=== PATIENT | male | born 1950 | race African-American/Black ===

== ENCOUNTER 2017-04-19 16:27 | Emergency (ER) | payer OTHER ==
[~2017-04-19 16:27] MED LIST: AMOX500T PO
[2017-04-19 16:29] VITALS: BP 158/87; PULSE 92; RESP 20; TEMP 97.5; O2SAT 98
--- NOTE | 2017-04-19 16:38 | PD ---
Physical Exam Time Seen by Provider: 16:38 Narrative 66 y/o male fell off a ladder today. He was stepping down and missed a ladder rung 3-4 ft, here with lower back pain. Vital signs reviewed. Seen at triage desk. Awaiting bed placement. Data Data Last Documented VS Vital Signs Date Time Temp Pulse Resp B/P Pulse Ox O2 Delivery O2 Flow Rate FiO2 04/19/17 16:29 97.5 92 20 158/87 98 Room Air [facility] Medical Record Reviewed: Yes Supervised Visit with ASIA: Ken Ann Apr 19, 2017 16:38
--- NOTE | 2017-04-19 17:42 | PD ---
HPI Chief Complaint: Back/ Neck Pain or Injury Time Seen by Provider: 17:39 Travel History International Travel<30 days: No Contact w/Intl Traveler<30days: No Traveled to known affect area: No History of Present Illness HPI 66-year-old male presents to the emergency department for evaluation after fall. Patient states he fell approximately 3-4 feet, hitting his left side. He adamantly denies hitting his head or any LOC. Patient denies any neck pain or chest pain. No shortness of breath. Patient reports lower back pain and left abdominal pain. He is ambulatory. Patient reports history of diabetes and is on metformin. Patient denies any nausea, vomiting, diarrhea. PFSH Past Medical History Diabetes: Yes Immunizations Current: Yes Social History Alcohol Use: Yes (OCCAS) Tobacco Use: No Substance Use: No Allergies-Medications (Allergen,Severity, Reaction): Coded Allergies: No Known Allergies (Verified , 04/19/17) Reported Meds & Prescriptions Reported Meds & Active Scripts Active Reported Metformin (Metformin HCl) 500 Mg Tab 500 Mg PO DAILY With a meal Review of Systems Except as stated in HPI: all other systems reviewed are Neg Physical Exam Narrative GENERAL: Well-nourished, well-developed male patient, ambulatory. Afebrile. SKIN: Focused skin assessment warm/dry. No lacerations or abrasions. HEAD: Normocephalic. Atraumatic. EYES: No scleral icterus. No injection or drainage. NECK: Supple, trachea midline. No JVD or lymphadenopathy. CARDIOVASCULAR: Regular rate and rhythm without murmurs, gallops, or rubs. RESPIRATORY: Breath sounds equal bilaterally. No accessory muscle use. Lungs sounds are clear to auscultation. GASTROINTESTINAL: Abdomen soft and nondistended. Patient has tenderness to left upper and lower abdomen. MUSCULOSKELETAL: No cyanosis, or edema. BACK: No obvious deformity. No CVA tenderness. Patient has tenderness to palpation over midline lumbar spine. No other midline spinal tenderness. Data Data Last Documented VS Vital Signs Date Time Temp Pulse Resp B/P Pulse Ox O2 Delivery O2 Flow Rate FiO2 04/19/17 19:15 70 18 126/69 97 Room Air 04/19/17 16:29 97.5 Orders Iv Access Insert/Monitor (04/19/17 17:36) Complete Blood Count With Diff (04/19/17 17:36) Comprehensive Metabolic Panel (04/19/17 17:36) Prothrombin Time / Inr (Pt) (04/19/17 17:36) Act Partial Throm Time (Ptt) (04/19/17 17:36) Ct Lumb Spine W/O Contrast (04/19/17 ) Ct Abd/Pel W Iv Contrast(Rout) (04/19/17 ) Sodium Chlor 0.9% 1000 Ml Inj (Ns 1000 M (04/19/17 17:45) Ondansetron Inj (Zofran Inj) (04/19/17 17:45) Morphine Inj (Morphine Inj) (04/19/17 18:00) Iohexol 350 Inj (Omnipaque 350 Inj) (04/19/17 19:38) Labs Laboratory Tests Test 04/19/17 18:00 White Blood Count 5.7 TH/MM3 Red Blood Count 4.50 MIL/MM3 Hemoglobin 13.5 GM/DL Hematocrit 39.4 % Mean Corpuscular Volume 87.4 FL Mean Corpuscular Hemoglobin 30.0 PG Mean Corpuscular Hemoglobin 34.3 % Concent Red Cell Distribution Width 12.9 % Platelet Count 227 TH/MM3 Mean Platelet Volume 8.4 FL Neutrophils (%) (Auto) 54.3 % Lymphocytes (%) (Auto) 36.1 % Monocytes (%) (Auto) 7.6 % Eosinophils (%) (Auto) 1.6 % Basophils (%) (Auto) 0.4 % Neutrophils # (Auto) 3.1 TH/MM3 Lymphocytes # (Auto) 2.1 TH/MM3 Monocytes # (Auto) 0.4 TH/MM3 Eosinophils # (Auto) 0.1 TH/MM3 Basophils # (Auto) 0.0 TH/MM3 CBC Comment DIFF FINAL Differential Comment Prothrombin Time 10.5 SEC Prothromb Time International 1.0 RATIO Ratio Activated Partial 28.6 SEC Thromboplast Time Sodium Level 139 MEQ/L Potassium Level 3.9 MEQ/L Chloride Level 104 MEQ/L Carbon Dioxide Level 26.1 MEQ/L Anion Gap 9 MEQ/L Blood Urea Nitrogen 20 MG/DL Creatinine 1.02 MG/DL Estimat Glomerular Filtration 88 ML/MIN Rate Random Glucose 164 MG/DL Calcium Level 9.0 MG/DL Total Bilirubin 0.2 MG/DL Aspartate Amino Transf 16 U/L (AST/SGOT) Alanine Aminotransferase 24 U/L (ALT/SGPT) Alkaline Phosphatase 133 U/L Total Protein 7.7 GM/DL Albumin 3.7 GM/DL MDM Medical Decision Making Medical Screen Exam Complete: Yes Emergency Medical Condition: Yes Medical Record Reviewed: Yes Interpretation(s) Last Impressions Lumbar Spine CT 04/19/17 0000 Signed Impressions: Service Date/Time: March 19:32 - CONCLUSION: 1. Degenerative changes without fracture or listhesis. Ramy Leija MD Abdomen/Pelvis CT 04/19/17 0000 Signed Impressions: Service Date/Time: , April 19, 2017 19:32 - CONCLUSION: No acute disease. Ramy Leija MD Differential Diagnosis Contusion versus fracture versus acute abdominal injury Narrative Course 66-year-old male presents to the emergency department for evaluation after 3-4 foot fall off a ladder. He reports lower back and left abdominal pain. IV access established. CBC, CMP, PTT, PTT/INR ordered and pending. CT of the lumbar spinous CT abdomen/pelvis with IV contrast is ordered and pending. Patient is given normal saline 1 L IV bolus, morphine 4 mg IV, Zofran 4 mg IV. CBC shows no acute abnormality. CMP shows no acute abnormality. Coags are unremarkable. CT of the lumbar spine shows degenerative changes without fracture or listhesis. CT abdomen/pelvis shows no acute disease. Imaging studies are reassuring. Patient was discharged short-term prescription for Lortab for pain. He is instructed to follow-up with his primary care physician. He verbalizes agreement and understanding. The patient was discharged in stable condition with instructions, including return instructions and follow up instructions. Diagnosis Primary Impression: Low back pain Qualified Code: M54.5 - Acute midline low back pain without sciatica Referrals: Primary Care Physician call for appointment Patient Instructions: Acute Low Back Pain (ED), General Instructions, Narcotic given in the ED Departure Forms: Tests/Procedures, Work Release Enter return to work date: Apr 22, 2017 Additional Instructions: Take Lortab as instructed as needed for pain. Caution this can make you drowsy so do not drive after taking. Ice for 20 minutes 4-5 times daily. Follow-up with your primary care physician. Return to the emergency department for any acute worsening of symptoms. Med/Other Pt SpecificInfo: Prescription(s) given Scripts Hydrocodone-Acetaminophen (Lortab)5-325 Mg Tab1 Tab PO Q6H PRN (PAIN) #12 TAB Ref 0 Prov:Robert Brambila MD 04/19/17 Disposition: 01 DISCHARGE HOME Condition: Stable Jeanine Nevarez Apr 19, 2017 17:42
[2017-04-19] MEDS ORDERED: SODIUM CHLOR 0.9% 1000 ML INJ 1,000 ML IV ONE (17:45)
[2017-04-19] MEDS ORDERED: ONDANSETRON HCL 4 MG/2 ML VIAL IV PUSH ONE (17:45)
[2017-04-19] MEDS ORDERED: METF500T PO (17:50)
[2017-04-19] MEDS ORDERED: MORPHINE SULFATE 4 MG/ML INJ IV PUSH ONE (18:00)
[2017-04-19 19:11] LABS: AUTOMATED NEUTROPHIL # 3.1 TH/MM3 (1.8-7.7); BASOPHIL % 0.4 % (0.0-2.0); EOSINOPHIL # 0.1 TH/MM3 (0-0.4); EOSINOPHIL % 1.6 % (0.0-4.0); HEMATOCRIT 39.4 % (39.0-51.0); HEMO FLAGS DIFF FINAL; LYMPH % 36.1 % (9.0-44.0); LYMPHOCYTE # 2.1 TH/MM3 (1.0-4.8); MEAN CELL VOLUME 87.4 FL (80.0-100.0); MEAN CORPUSCULAR HGB CONC 34.3 % (32.0-36.0); MONO % 7.6 % (0.0-8.0); NEUT % 54.3 % (16.0-70.0); PLATELET COUNT 227 TH/MM3 (150-450); RED CELL DISTRIBUTION WIDTH 12.9 % (11.6-17.2); WHITE BLOOD COUNT 5.7 TH/MM3 (4.0-11.0)
[2017-04-19 19:15] VITALS: BP 126/69; PULSE 70; RESP 18; O2SAT 97
[2017-04-19 19:23] LABS: ANION GAP 9 MEQ/L (5-15); AST (GOT) 16 U/L (15-37); BICARBONATE 26.1 MEQ/L (21.0-32.0); BLOOD UREA NITROGEN 20 MG/DL (7-18); CHLORIDE 104 MEQ/L (98-107); GLOMERULAR FILTRATION RATE 88 ML/MIN (>89); POTASSIUM 3.9 MEQ/L (3.5-5.1); SODIUM (NA) 139 MEQ/L (136-145)
[2017-04-19 19:26] LABS: ALKALINE PHOSPHATASE 133 U/L (45-117); ALT (GPT) 24 U/L (12-78); TOTAL BILIRUBIN ADULT 0.2 MG/DL (0.2-1.0)
[2017-04-19] MEDS ORDERED: IOHEXOL 350 MG/ML 10 ML VIAL (for RAD DIAG) IV ONE (19:38)
[2017-04-19 19:41] LABS: APTT (PATIENT) 28.6 SEC (24.3-30.1); PROTHROMBIN TIME - PATIENT 10.5 SEC (9.8-11.6)
--- NOTE | 2017-04-19 19:53 | RADRPT ---
EXAM DATE/TIME: 04/19/2017 19:32 [facility] COMPARISON: No previous studies available for comparison. INDICATIONS : Fall from ladder today, lower back pain. IV CONTRAST: 96 cc Omnipaque 350 (iohexol) IV ORAL CONTRAST: No oral contrast ingested. RADIATION DOSE: 11.49 CTDIvol (mGy) ; Patient body habitus MEDICAL HISTORY : diabetes SURGICAL HISTORY : None. ENCOUNTER: Initial ACUITY: 1 day PAIN SCALE: 7/10 LOCATION: Bilateral lower back TECHNIQUE: Volumetric scanning of the abdomen and pelvis was performed. Using automated exposure control and ad justment of the mA and/or kV according to patient size, radiation dose was kept as low as reasonably achievable to obtain optimal diagnostic quality images. DICOM format image data is available electro nically for review and comparison. FINDINGS: There are degenerative changes of the spine noted greatest at the lumbosacral junction. No obvious fr actures. Lung bases are clear. No pleural or pericardial effusions. Hepatic steatosis. Gallbladder, k idneys, spleen, pancreas unremarkable. Bowel nodularity of the bilateral adrenal glands, sub-centimet er. Fat containing umbilical hernia. Urinary bladder and prostate unremarkable. Bilateral fat-contain ing inguinal hernias bilaterally. CONCLUSION: No acute disease. Ramy Leija MD on April 19, 2017 at 19:50 Board Certified Radiologist. This report was verified electronically.
--- NOTE | 2017-04-19 19:55 | RADRPT ---
EXAM DATE/TIME: 04/19/2017 19:32 [facility] COMPARISON: CT ABDOMEN & PELVIS W CONTRAST, April 19, 2017, 19:32. INDICATIONS : Fall from ladder today, lower back pain. RADIATION DOSE: ; Reconstructed from previous dataset, no dose MEDICAL HISTORY : diabetes SURGICAL HISTORY : None. ENCOUNTER: Initial ACUITY: 1 day PAIN SCALE: 7/10 LOCATION: Bilateral lower back TECHNIQUE: Volumetric scanning of the lumbar spine was performed. Multiplanar reconstructions in the sagittal, coronal and oblique axial planes were performed. Using automated exposure control and adjustment of the mA and/or kV according to patient size, radiation dose was kept as low as reasonably achievable t o obtain optimal diagnostic quality images. DICOM format image data is available electronically for review and comparison. FINDINGS: VERTEBRAE: Normal vertebral body height. Mild multilevel osteophyte formation. Moderate facet hypertrophic epps es at L4-5 and L5-S1. ALIGNMENT: No evidence of subluxation. T12-L1: The thecal sac has a normal diameter. No evidence of disc bulge or protrusion. The neural foramina are patent bilaterally. L1-L2: The thecal sac has a normal diameter. No evidence of disc bulge or protrusion. The neural foramina are patent bilaterally. L2-L3: The thecal sac has a normal diameter. No evidence of disc bulge or protrusion. The neural foramina are patent bilaterally. L3-L4: The thecal sac has a normal diameter. No evidence of disc bulge or protrusion. The neural foramina are patent bilaterally. L4-L5: Mild diffuse disc bulge. Moderate facet hypertrophy. L5-S1: Mild diffuse disc bulge and moderate facet and ligamentum flavum hypertrophy. CONCLUSION: 1. Degenerative changes without fracture or listhesis. Ramy Leija MD on April 19, 2017 at 19:52 Board Certified Radiologist. This report was verified electronically.
[2017-04-19] MEDS ORDERED: HYDR-3533 PO (20:16)
== END 2017-04-19 20:44 | disposition home or self-care (01) ==
LOC: NEPD 16:27
DX: M54.5 Low back pain (principal); R10.9 Unspecified abdominal pain; W11.XXXA Fall on and from ladder, initial encounter
CPT/HCPCS: 72131; 74177; 80053; 85025; 85610; 85730; 96374; 96375; 99285; J2270; J2405; J7030; Q9967

== ENCOUNTER 2017-10-25 17:27 | Emergency (ER) | payer OTHER ==
[~2017-10-25] VITALS: Ht 172.7 cm; Wt 102.0 kg
[~2017-10-25 17:27] MED LIST changes: -AMOX500T PO; +HYDR-3533 PO; +METF500T PO
[2017-10-25 17:29] VITALS: BP 153/84; PULSE 84; RESP 14; TEMP 98.6; O2SAT 100
[2017-10-25 18:25] LABS: AUTOMATED NEUTROPHIL # 2.3 TH/MM3 (1.8-7.7); BASOPHIL % 0.3 % (0.0-2.0); EOSINOPHIL # 0.1 TH/MM3 (0-0.4); EOSINOPHIL % 1.1 % (0.0-4.0); HEMATOCRIT 40.3 % (39.0-51.0); LYMPH % 46.2 % (9.0-44.0); LYMPHOCYTE # 2.5 TH/MM3 (1.0-4.8); MEAN CELL VOLUME 85.3 FL (80.0-100.0); MEAN CORPUSCULAR HEMOGLOBIN 29.7 PG (27.0-34.0); MEAN CORPUSCULAR HGB CONC 34.8 % (32.0-36.0); MEAN PLATELET VOLUME 7.5 FL (7.0-11.0); MONO % 9.8 % (0.0-8.0); MONOCYTE # 0.5 TH/MM3 (0-0.9); NEUT % 42.6 % (16.0-70.0); PLATELET COUNT 297 TH/MM3 (150-450); RED BLOOD COUNT 4.72 MIL/MM3 (4.50-5.90); RED CELL DISTRIBUTION WIDTH 12.7 % (11.6-17.2); WHITE BLOOD COUNT 5.4 TH/MM3 (4.0-11.0)
[2017-10-25 18:49] LABS: BICARBONATE 28.5 MEQ/L (21.0-32.0); BLOOD UREA NITROGEN 10 MG/DL (7-18); CALCIUM 9.2 MG/DL (8.5-10.1); CHLORIDE 103 MEQ/L (98-107); CREATININE 0.86 MG/DL (0.60-1.30); GLOMERULAR FILTRATION RATE 108 ML/MIN (>89); GLUCOSE,RANDOM 207 MG/DL (74-106); SODIUM (NA) 136 MEQ/L (136-145)
[2017-10-25 18:53] LABS: TROPONIN I LESS THAN 0.02 NG/ML (0.02-0.05)
[2017-10-25 20:00] VITALS: BP 175/87; PULSE 60; RESP 16; O2SAT 99
--- NOTE | 2017-10-25 20:34 | PD ---
HPI Chief Complaint: Pain: Acute or Chronic Time Seen by Provider: 20:08 Travel History International Travel<30 days: No Contact w/Intl Traveler<30days: No Traveled to known affect area: No History of Present Illness HPI 66-year-old male reports about one month of left chest pain is located overlying the inferior costal margin was some radiation to the left upper quadrant. Hepain is worse on lifting overhead. He has no radiation of pain. He denies shortness of breath. There is no pleuritic or exertional component. He has no family history coronary artery disease. He does not smoke. There is a positive history diabetes hypertension hyperlipidemia. He works in [employer] and reports lots of overhead lifting. No fever/cough. PFSH Past Medical History Cardiovascular Problems: Yes High Cholesterol: Yes Diabetes: Yes Patient Takes Glucophage: Yes ("yes but dont take it") Hypertension: Yes Immunizations Current: Yes Social History Alcohol Use: Yes (OCCAS) Tobacco Use: No Substance Use: No Allergies-Medications (Allergen,Severity, Reaction): Coded Allergies: No Known Allergies (Verified Adverse Reaction, Unknown, 10/25/17) Reported Meds & Prescriptions Reported Meds & Active Scripts Active Lortab (Hydrocodone-Acetaminophen) 5-325 Mg Tab 1 Tab PO Q6H PRN Reported Metformin (Metformin HCl) 500 Mg Tab 500 Mg PO DAILY With a meal Review of Systems Except as stated in HPI: all other systems reviewed are Neg General / Constitutional: No: Fever Physical Exam Narrative GENERAL: Well-nourished well developed male 66 yo, NAD SKIN: Warm and dry. HEAD: Atraumatic. Normocephalic. EYES: Pupils equal and round. No scleral icterus. No injection or drainage. ENT: No nasal bleeding or discharge. Mucous membranes pink and moist. NECK: Trachea midline. No JVD. CARDIOVASCULAR: Regular rate and rhythm. RESPIRATORY: No accessory muscle use. Clear to auscultation. Breath sounds equal bilaterally. GASTROINTESTINAL: Abdomen soft, non-tender, nondistended. Hepatic and splenic margins not palpable. MUSCULOSKELETAL: Extremities without clubbing, cyanosis, or edema. No obvious deformities. NEUROLOGICAL: Awake and alert. No obvious cranial nerve deficits. Motor grossly within normal limits. Five out of 5 muscle strength in the arms and legs. Normal speech. PSYCHIATRIC: Appropriate mood and affect; insight and judgment normal. Data Data Last Documented VS Vital Signs Date Time Temp Pulse Resp B/P (MAP) Pulse Ox O2 Delivery O2 Flow Rate FiO2 10/25/17 20:00 60 16 175/87 (116) 99 Nasal Cannula 10/25/17 17:29 98.6 VS reviewed Orders Orders Electrocardiogram (10/25/17 17:57) Complete Blood Count With Diff (10/25/17 17:57) Basic Metabolic Panel (Bmp) (10/25/17 17:57) Ckmb (Isoenzyme) Profile (10/25/17 17:57) Troponin I (10/25/17 17:57) CKMB (10/25/17 18:10) CKMB% (10/25/17 18:10) Labs Laboratory Tests Test 10/25/17 18:10 White Blood Count 5.4 TH/MM3 Red Blood Count 4.72 MIL/MM3 Hemoglobin 14.0 GM/DL Hematocrit 40.3 % Mean Corpuscular Volume 85.3 FL Mean Corpuscular Hemoglobin 29.7 PG Mean Corpuscular Hemoglobin Concent 34.8 % Red Cell Distribution Width 12.7 % Platelet Count 297 TH/MM3 Mean Platelet Volume 7.5 FL Neutrophils (%) (Auto) 42.6 % Lymphocytes (%) (Auto) 46.2 % Monocytes (%) (Auto) 9.8 % Eosinophils (%) (Auto) 1.1 % Basophils (%) (Auto) 0.3 % Neutrophils # (Auto) 2.3 TH/MM3 Lymphocytes # (Auto) 2.5 TH/MM3 Monocytes # (Auto) 0.5 TH/MM3 Eosinophils # (Auto) 0.1 TH/MM3 Basophils # (Auto) 0.0 TH/MM3 CBC Comment DIFF FINAL Differential Comment Blood Urea Nitrogen 10 MG/DL Creatinine 0.86 MG/DL Random Glucose 207 MG/DL Calcium Level 9.2 MG/DL Sodium Level 136 MEQ/L Potassium Level 3.7 MEQ/L Chloride Level 103 MEQ/L Carbon Dioxide Level 28.5 MEQ/L Anion Gap 5 MEQ/L Estimat Glomerular Filtration Rate 108 ML/MIN Total Creatine Kinase 344 U/L Creatine Kinase MB 3.1 NG/ML Creatine Kinase MB % 0.9 % Troponin I LESS THAN 0.02 NG/ML MDM Medical Decision Making Medical Screen Exam Complete: Yes Emergency Medical Condition: Yes Medical Record Reviewed: Yes Differential Diagnosis NSTEMI, unstable angina, coronary vasospasm, PE, PTX, aortic dissection, pericarditis, myocarditis, endocarditis, PNA, esophageal disease, aneurysm, musculoskeletal etiologies, anxiety, cocaine/sympathomimetic abuse Narrative Course CBC & BMP Diagram 10/25/17 18:10 Calcium Level 9.2 Troponins less than 0.02 EKG shows normal axis intervals without evidence of ischemic injury pattern Patient agrees to follow-up with primary care provider and to obtain stress test and will call in the morning. At the conclusion of interview he also notes using some spicy sausages on his foods which seems to correlate with symptoms. The patient is resting comfortably and feels better, is alert and in no distress. The patients results and examination findings were discussed. The repeat examination is unremarkable and benign. The history, exam, diagnostic testing, and current condition do not suggest any significant pathology to warrant further testing, continued ED treatment, admission, or surgical evaluation at this point. The vital signs have been stable. The patient does not have uncontrollable pain, intractable vomiting, or other significant symptoms. The patient's condition is stable and appropriate for discharge. The patient will pursue further outpatient evaluation with a primary care physician or other designated or consulting physician as indicated in the discharge instructions. The patient expressed understanding and was agreeable with this plan. Diagnosis Primary Impression: Atypical chest pain Referrals: Registered Safety Engineer 2 days Primary Care Physician 2 days Med/Other Pt SpecificInfo: No Change to Meds Disposition: 01 DISCHARGE HOME Condition: Stable Amadou Martinez MD Oct 25, 2017 20:34
--- NOTE | 2017-10-26 09:25 | EKG ---
Date Performed: 10/25/2017 Time Performed: 18:08:17 PTAGE: 66 years EKG: Sinus rhythm NORMAL ECG NO PREVIOUS TRACING DOCTOR: Joseph Parker Interpretating Date/Time 10/26/2017 09:24:15
== END 2017-10-25 20:55 | disposition home or self-care (01) ==
LOC: NEPD 17:27
DX: R07.89 Other chest pain (principal); I10 Essential (primary) hypertension; E11.9 Type 2 diabetes mellitus without complications; E78.00 Pure hypercholesterolemia, unspecified; Z79.84 Long term (current) use of oral hypoglycemic drugs
CPT/HCPCS: 80048; 82550; 82552; 84484; 85025; 93005; 99284